=== PATIENT | male | born 1970 | race Caucasian/White ===

== ENCOUNTER 2020-07-24 00:15 | Emergency (ER) | payer BC | END 2020-07-24 01:38 | disposition home or self-care (01) | LOC: ED 00:15 | DX: K59.00 Constipation, unspecified (principal) ==

== ENCOUNTER 2020-07-24 12:23 | Inpatient (IN) | payer BC ==
[~2020-07-24] VITALS: Ht 180.3 cm; Wt 96.6 kg
[2020-07-24 12:33] VITALS: BP 139/98
[2020-07-24 13:13] LABS: BASO % 0.2 % (0.0-1.0); EOS % 0.1 % (1.0-4.0); HEMATOCRIT 49.2 % (42.0-52.0); LYMPH # 1.1 10*3/uL (1.3-4.4); LYMPH % 5.6 % (27.0-41.0); MEAN CELL VOLUME 90.1 fl (80.0-94.0); MEAN CORPUSCULAR HGB 31.5 pg (27.0-31.0); MEAN PLATELET VOLUME 9.2 fl (9.6-12.3); MONO % 5.3 % (3.0-9.0); NEUT # 16.8 10*3/uL (2.3-7.9); NEUT % 88.3 % (47.0-73.0); PLATELET COUNT AUTOMATED 366 10*3/uL (130-400); RED BLOOD COUNT 5.46 10*6/uL (4.50-5.90); RED CELL DISTRI WIDTH 12.5 % (0-14.5)
[2020-07-24 13:22] LABS: BILIRUBIN 1+; CLARITY SL CLOUDY (CLEAR); COLOR YELLOW (YELLOW); GLUCOSE NEGATIVE; KETONE NEGATIVE; SPECIFIC GRAVITY 1.025 (1.001-1.030)
[2020-07-24 13:23] LABS: BLOOD 2+ (NEGATIVE); LEUKO ESTERASE TRACE (NEGATIVE); NITRITE NEGATIVE (NEGATIVE); PH 6.5 (4.5-8.0)
[2020-07-24 13:25] LABS: ALKALINE PHOSPHATASE 112 U/L (45-117); BUN 11 mg/dl (7-24); CHLORIDE 101 mmol/L (98-107); CREATININE 1.05 mg/dL (0.70-1.30); LIPASE 65 U/L (73-393); POTASSIUM 3.9 mmol/L (3.5-5.1); SGOT/AST 72 IU/L (3-35); SGPT/ALT 140 U/L (12-78); SODIUM 135 mmol/L (136-145); TOTAL PROTEIN 8.9 gm/dL (6.4-8.2)
[2020-07-24 13:33] LABS: RBC 21-30 rbc/hpf (0-2)
[2020-07-24 13:34] LABS: BACTERIA 1+; MUCOUS 1+
--- NOTE | 2020-07-24 14:20 | NUR ---
PT. SITTING IN BED, APPEARS TO BE IN NO DISTRESS. WILL CONT TO MONITOR. CALL LIGHT IN REACH.
--- NOTE | 2020-07-24 15:20 | NUR ---
A 50, admitted to , under the services of ALVINO Barry DO with a diagnosis of ACUTE CHOLECYSTITIS. Chief complaint is ABDOMINAL PAIN AND CONSTIPATION X3 DAYS. Patient arrived via stretcher from ER. Monitor applied. Initial assessment completed. Vital signs taken and recorded. ALVINO BARRY DO notified of admission to the unit. Orders received. See assessment for past medical history, medications and allergies. Patient and/or family oriented to unit. [address] visitation policy reviewed. Clothing/patient valuable form completed. PEDRITO KLINE
[2020-07-24 15:30] VITALS: BP 146/90
--- NOTE | 2020-07-24 16:00 | NUR ---
DR BERNABE NOTIFIED OF CONSULT.
--- NOTE | 2020-07-24 16:19 | NUR ---
MEDICATED WITH PO NORCO ORDERED PER PT REQUEST FOR LOWER ABDOMINAL PAIN RATED 8/10.
--- NOTE | 2020-07-24 17:30 | NUR ---
MEDICATION NOT EFFECTIVE FOR PAIN.
--- NOTE | 2020-07-24 18:12 | NUR ---
MEDICATED WITH IV DILAUDID ORDERED PER PT REQUEST FOR C/O RUQ PAIN RATED 10/10. PREVIOUS MEDICATION NOT EFFECTIVE FOR PAIN.
--- NOTE | 2020-07-24 19:26 | NUR ---
MEDICATION EFFECTIVE FOR PAIN.
[2020-07-24 20:00] VITALS: BP 129/86
[2020-07-25] VITALS: BP 124/78
[2020-07-25 06:34] LABS: BASO % 0.1 % (0.0-1.0); EOS % 0.1 % (1.0-4.0); HEMATOCRIT 44.2 % (42.0-52.0); LYMPH # 1.5 10*3/uL (1.3-4.4); LYMPH % 9.8 % (27.0-41.0); MEAN CELL VOLUME 91.7 fl (80.0-94.0); MEAN CORPUSCULAR HGB 32.2 pg (27.0-31.0); MEAN CORPUSCULAR HGB CONC 35.1 g/dl (33.0-37.0); MEAN PLATELET VOLUME 9.1 fl (9.6-12.3); MONO # 0.9 10*3/uL (0.1-1.0); MONO % 6.1 % (3.0-9.0); NEUT # 12.7 10*3/uL (2.3-7.9); NEUT % 83.6 % (47.0-73.0); PLATELET COUNT AUTOMATED 276 10*3/uL (130-400); RED BLOOD COUNT 4.82 10*6/uL (4.50-5.90); RED CELL DISTRI WIDTH 13.1 % (0-14.5); WHITE BLOOD COUNT 15.2 10*3/uL (4.8-10.8)
[2020-07-25 06:52] LABS: ALBUMIN 3.1 gm/dl (3.1-4.5); ALKALINE PHOSPHATASE 99 U/L (45-117); BILIRUBIN, DIRECT 0.8 mg/dL (0.0-0.2); BUN 8 mg/dl (7-24); CHLORIDE 105 mmol/L (98-107); CHOLESTEROL 160 mg/dL (<200); CREATININE 0.95 mg/dL (0.70-1.30); FREE T4 1.06 ng/dl (0.76-1.46); HDL CHOLESTEROL 54 mg/dl (40-60); LDL CHOLESTEROL 83 mg/dL (9-159); POTASSIUM 3.8 mmol/L (3.5-5.1); SGOT/AST 79 IU/L (3-35); SGPT/ALT 141 U/L (12-78); SODIUM 136 mmol/L (136-145); TOTAL PROTEIN 7.4 gm/dL (6.4-8.2); TRIGLYCERIDES 116 mg/dl (<150); VLDL CHOLESTEROL 23 mg/dL (6-40)
[2020-07-25 07:29] LABS: VITAMIN D, 25-HYDROXY 13.6 ng/mL (30-100)
[2020-07-25 08:00] VITALS: BP 126/84
--- NOTE | 2020-07-25 08:15 | NUR ---
IN TO ASSESS PATIENT. PT C/O PAIN AND TENDERNESS TO HIS RUQ OF ABDOMEN. SCHEDULED DILAUDID TO BE ADMINISTERED ORDERED THROUGHOUT THE DAY. NEGATIVE ASSESSMENT OTHERWISE. PT EDUCATED OF NPO STATUS FOR POSSIBLE IRA WITH DR BERNABE TODAY. BED LOCKED AND IN THE LOWEST POSITION. CALL LIGHT IN REACH. WILL MONITOR.
--- NOTE | 2020-07-25 11:53 | NUR ---
PT REQUESTING TO SPEAK WITH A ACTIVITY DIRECTOR AT THIS TIME. STATES THAT HE "NEEDS HIS WORK LAPTOP FROM HIS APARTMENT IN [place] AND HAS TO GET IT HIMSELF BECAUSE HI FAMILY LIVES IN [place]". I TRIED TO EXPLAIN THAT HE WOULD BE LEAVING AMA IF HE LEFT, HE IS NOT UNDERSTANDING. STATES HE WOULD "COME RIGHT BACK". DANIKA, NURSING ACTIVITY DIRECTOR IN TO TALK WITH THE PATIENT.
[2020-07-25 12:00] VITALS: BP 112/69
--- NOTE | 2020-07-25 13:26 | NUR ---
SECOND BAG OF FLUIDS FINISHED AT THIS TIME. PASSED ON FROM TEACHER TUTOR NURSE THAT 2 BAGS HAVE BEEN GIVEN DESPITE EMAR SHOWING ONLY ONE WAS.
--- NOTE | 2020-07-25 13:26 | NUR ---
SPOKE WITH JESSICA SCRUGGS NP, STATES IT IS OKAY TO GIVE THE PATIENT A DOSE OF COLACE NOW PER PT REQUEST.
[2020-07-25 16:00] VITALS: BP 129/86
--- NOTE | 2020-07-25 17:29 | NUR ---
PT CONCERNED THAT HE HAS YET TO MOVE HIS BOWELS. CALLED OUT TO JESSICA SCRUGGS AIR TRAFFIC CONTROL SUPERVISOR 2 TIMES, BUT NO ANSWER AT THIS TIME. PT IS REQUESTING SOMETHING ELSE TO HELP HIM GO. STATES HE "SHOULD NOT HAVE SURGERY IF HE CAN NOT GO ADEQUATELY BEFORE MORNING".
--- NOTE | 2020-07-25 18:34 | NUR ---
SPOKE WITH DR GRAYSON REGARDING PT REQUEST FOR SOMETHING TO HELP MOVE HIS BOWELS. AWAITING NEW ORDERS.
--- NOTE | 2020-07-25 19:15 | NUR ---
IN TO SEE PT AT THIS TIME. PT IS SITTING UP IN BED C/O ABDOMINAL DISCOMFORT STATING THAT HE "FEELS BLOATED AND CONSTIPATED". RESPS ARE EASY AND NONLABORED, BS NORMOACTIVE. BED IS LOW, CALL LIGHT WITHIN REACH. WILL CONTINUE TO MONITOR.
--- NOTE | 2020-07-25 19:34 | NUR ---
SPOKE WITH DR DOHERTY REGARDING PATIENT'S CONCERN OF HAVING NO BOWEL MOVEMENT FOR THREE DAYS. ORDERS RECEIEVED.
--- NOTE | 2020-07-25 19:40 | NUR ---
PT MEDICATED WITH ONE TIME DOSE OF MAG CITRATE FOR C/O CONSTIPATION. WILL MONITOR FOR EFFECTIVENESS.
--- NOTE | 2020-07-25 19:45 | NUR ---
24 HR CHART CHECK COMPLETE.
[2020-07-25 20:00] VITALS: BP 126/76
[2020-07-26] VITALS (11 sets, daily range): BP systolic 101–135; BP diastolic 59–91
[2020-07-26 06:25] LABS: ALBUMIN 3.2 gm/dl (3.1-4.5); BUN 8 mg/dl (7-24); CHLORIDE 103 mmol/L (98-107); POTASSIUM 3.6 mmol/L (3.5-5.1); SODIUM 137 mmol/L (136-145)
[2020-07-26 06:30] LABS: ALKALINE PHOSPHATASE 145 U/L (45-117); CREATININE 0.96 mg/dL (0.70-1.30); SGOT/AST 71 IU/L (3-35); SGPT/ALT 142 U/L (12-78); TOTAL PROTEIN 8.1 gm/dL (6.4-8.2)
[2020-07-26 06:32] LABS: BASO % 0.3 % (0.0-1.0); EOS # 0.1 10*3/uL (0.0-0.4); EOS % 0.4 % (1.0-4.0); HEMATOCRIT 45.5 % (42.0-52.0); LYMPH # 2.4 10*3/uL (1.3-4.4); LYMPH % 18.6 % (27.0-41.0); MEAN CELL VOLUME 93.2 fl (80.0-94.0); MEAN CORPUSCULAR HGB 31.6 pg (27.0-31.0); MEAN CORPUSCULAR HGB CONC 33.8 g/dl (33.0-37.0); MEAN PLATELET VOLUME 9.5 fl (9.6-12.3); MONO # 0.8 10*3/uL (0.1-1.0); MONO % 6.4 % (3.0-9.0); NEUT # 9.7 10*3/uL (2.3-7.9); NEUT % 73.8 % (47.0-73.0); PLATELET COUNT AUTOMATED 336 10*3/uL (130-400); RED BLOOD COUNT 4.88 10*6/uL (4.50-5.90); RED CELL DISTRI WIDTH 12.8 % (0-14.5); WHITE BLOOD COUNT 13.1 10*3/uL (4.8-10.8)
--- NOTE | 2020-07-26 09:00 | NUR ---
Cuprous Chloride Helper in to talk to patient. Patient states lives at home with alone. There are no steps in the home. Physician: out of state Pharmacy: out of state Home health services: none Patient's level of ADLs: INDEPENDENT Patient has working utilities: all working DME: none Follow-up physician's appointment after d/c: will be made by hospitalist nurse director upon discharge with doctor in this area Does patient want to access PORTAL?: no Discharge plan discussed with patient, he states he lives out of state but has been in this area working, he is independent in adls and ambulation, drives, discussed with his a discharge plan after surgery and he stated he would be able to go home alone, case management will follow for any home needs,. REJI JASSO
--- NOTE | 2020-07-26 09:50 | NUR ---
PATIENT TAKEN OFF FLOOR TO OPERATING ROOM.
--- NOTE | 2020-07-26 11:45 | NUR ---
PT TAKEN OFF FLOOR & TRANSPORTED TO [facility] FOR CHANDRA
--- NOTE | 2020-07-26 13:48 | NUR ---
PT C/O 10/ PAIN TO R ABD POST-OPERATIVE. MEDICATED WITH IV DILAUDID PER ORDER. WILL MONITOR FOR EFFECTIVENESS.
--- NOTE | 2020-07-26 14:48 | NUR ---
PER PATIENT, IV DILAUDID HAS BEEN EFFECTIVE. NO FURTHER COMPLAINTS AT THIS TIME. CALL LIGHT IN REACH.
[2020-07-27] VITALS: BP 116/73
[2020-07-27 08:00] VITALS: BP 129/69
--- NOTE | 2020-07-27 08:15 | NUR ---
PATIENT STATES HE IS COMFORTABLE AT THIS TIME AND DENIES NEED FOR DILAUDID. PER PATIENT HE IS SLIGHTLY TENDER AND DISTENDED BUT THAT IT IS TOLERABLE AT THIS TIME. LUNGS CLEAR T/O. INCISIONS CLEAN & DRY, MARCY DRAIN INTACT WITH SCANT AMOUNT OF BLOODY DRAINAGE NOTED IN BULB. CALL LIGHT IS WITHIN REACH.
[2020-07-27 08:19] LABS: BASO % 0.2 % (0.0-1.0); HEMATOCRIT 43.4 % (42.0-52.0); LYMPH % 7.5 % (27.0-41.0); MEAN CELL VOLUME 91.4 fl (80.0-94.0); MEAN CORPUSCULAR HGB 31.2 pg (27.0-31.0); MEAN CORPUSCULAR HGB CONC 34.1 g/dl (33.0-37.0); MEAN PLATELET VOLUME 9.2 fl (9.6-12.3); MONO # 0.7 10*3/uL (0.1-1.0); MONO % 5.3 % (3.0-9.0); NEUT # 11.2 10*3/uL (2.3-7.9); NEUT % 86.5 % (47.0-73.0); PLATELET COUNT AUTOMATED 356 10*3/uL (130-400); RED BLOOD COUNT 4.75 10*6/uL (4.50-5.90); RED CELL DISTRI WIDTH 12.3 % (0-14.5); WHITE BLOOD COUNT 12.9 10*3/uL (4.8-10.8)
[2020-07-27 08:34] LABS: ALKALINE PHOSPHATASE 123 U/L (45-117); BUN 12 mg/dl (7-24); CHLORIDE 103 mmol/L (98-107); CREATININE 0.81 mg/dL (0.70-1.30); POTASSIUM 3.8 mmol/L (3.5-5.1); SGOT/AST 60 IU/L (3-35); SGPT/ALT 120 U/L (12-78); SODIUM 137 mmol/L (136-145); TOTAL PROTEIN 8.1 gm/dL (6.4-8.2)
--- NOTE | 2020-07-27 09:00 | NUR ---
case management visits with patient, patient sitting on side of bed, he stated he feels better today and is hoping to be discharged, he denies any home needs at this time
[2020-07-27] MEDS ORDERED: CIPRO500 MG (11:34)
[2020-07-27] MEDS ORDERED: FLAGYL500 MG (11:35)
[2020-07-27] MEDS ORDERED: ZOFRAN4 MG PO (11:40)
[2020-07-27] MEDS ORDERED: COLACE100 MG PO (11:40)
[2020-07-27 12:00] VITALS: BP 110/65
[2020-07-27] MEDS ORDERED: CIPRO500 MG PO (12:03)
[2020-07-27] MEDS ORDERED: FLAGYL500 MG PO (12:03)
[2020-07-27] MEDS ORDERED: NORCO 5-325 TA1 EACH PO (12:35)
--- NOTE | 2020-07-27 13:30 | NUR ---
Discharge instructions reviewed with patient/family. Patient receptive and verbalizes understanding. Follow-up care arranged. Written instructions given to patient/family. PATIENT GIVEN RECORDS FROM VISIT UPON REQUEST. HEPLOCK DISCONTINUED. RETURN TO WORK SLIP GIVEN. PRESCRIPTIONS GIVEN. PT REQUESTING ITEMIZED BILL. SPOKE WITH H[employer] SPORTS COACH AND SHE STATES PATIENT WILL NEED TO CALL BILLING IN 3-4 DAYS FOR THIS INFO. PATIENT AMBULATORY OFF FLOOR BERT HARE
== END 2020-07-27 13:30 | disposition home or self-care (01) | DRG 854 ==
LOC: ED 12:23 → EDHOLD 14:34 → 4E 14:34
PROVIDERS: Emergency Medicine; Registered Nurse; Surgery; ADMIT Internal Medicine; ATTEND Internal Medicine
PROC: 0FT44ZZ Resection of Gallbladder, Percutaneous Endoscopic Approach (ICD-10-PCS; principal; 2020-07-26)
DX: A41.9 Sepsis, unspecified organism (principal); E87.1 Hypo-osmolality and hyponatremia; K80.01 Calculus of gallbladder with acute cholecystitis with obstruction; K59.00 Constipation, unspecified; R65.20 Severe sepsis without septic shock; R74.0 Nonspecific elevation of levels of transaminase and lactic acid dehydrogenase [LDH]; K76.0 Fatty (change of) liver, not elsewhere classified; Z79.899 Other long term (current) drug therapy